=== PATIENT | female | born 1965 | race American Indian/Alaskan Native ===

== ENCOUNTER 2019-01-24 10:57 | Inpatient (IN) | payer OTHER ==
--- NOTE | 2019-01-24 11:01 | Emergency Department Report ---
ED Neuro Deficit HPI - General Chief Complaint: Neuro Symptoms/Deficit Stated Complaint: NEURO ISSUES Time Seen by Provider: 01/24/19 10:58 Source: patient, EMS (EMS notes not available at time of chart dictation), RN notes reviewed, old records reviewed Mode of arrival: Stretcher Limitations: Physical Limitation - History of Present Illness Initial Comments: This is a 54-year-old female. This patient is not known to this provider previously. She does not know the name of her primary care doctor. As per review of old medical records, has a history of diabetes, hypertension, high cholesterol, asthma, transient ischemic attack. Patient brought to the hospital by EMS for complaints of possible stroke. Patient and EMS believe her last normal time is 7:30 in the morning. Symptoms include frontal headache, throbbing in nature, not sudden or thunderclap in nature, and subjective right- sided arm weakness and discoordination. Symptoms constant, do not radiate anywhere, and did not have exacerbating or relieving factors. Patient denies recent surgery. She denies other pain. She states she is not taking systemic anticoagulation as she is aware of. She is not sure if she is taking aspirin. -: hour(s) Location: right arm, right leg, other Presenting Symptoms: Present: Weak/Paralyzed One Side History of same: Yes Place: home Severity: mild Quality: weak Improves With: none Worsens With: none Context: other (patient not sure, believes onset at 7:30) - Related Data Home Medications: Home Medications Medication Instructions Recorded Confirmed Last Taken Lisinopril 40 mg PO DAILY 01/07/15 05/09/16 01/06/15 Metoprolol 01/07/15 01/07/15 01/06/15 NovoLOG Flexpen 01/07/15 01/07/15 01/06/15 Proventil 0.5% NEBS 01/07/15 01/07/15 01/06/15 Insulin Detemir [Levemir Flextouch] 25 unit SQ BID 05/09/16 05/09/16 Unknown Rosuvastatin (Nf) [Crestor] 10 mg PO QHS 05/09/16 05/09/16 Unknown Travoprost (Benzalkonium) 2.5 ml OP DAILY 05/09/16 05/09/16 Unknown [Travoprost 0.004% Eye Drop] hydroCHLOROthiazide [HCTZ] 25 mg PO QDAY 05/09/16 05/09/16 Unknown Previous Rx's Medication Instructions Recorded Last Taken Type Aspirin 325 mg PO QDAY #30 tablet 01/07/15 Unknown Rx Naproxen [Naprosyn] 500 mg PO BID #20 tablet 05/09/16 Unknown Rx Allergies/Adverse Reactions: Allergies Allergy/AdvReac Type Severity Reaction Status Date / Time codeine Allergy Hives Verified 01/24/19 11:00 ibuprofen [From Motrin] Allergy Rash Verified 01/24/19 11:00 metformin Allergy Hives Verified 01/24/19 11:00 ED Review of Systems ROS: Stated complaint: NEURO ISSUES Other details as noted in HPI Constitutional: denies: fever Eyes: denies: eye discharge ENT: denies: epistaxis Respiratory: denies: cough Cardiovascular: denies: syncope Gastrointestinal: denies: abdominal pain Genitourinary: denies: dysuria Musculoskeletal: denies: back pain Skin: denies: lesions Neurological: headache, weakness Psychiatric: anxiety ED Past Medical Hx - Past Medical History Hx Hypertension: Yes Hx CVA: Yes (TIA) Hx Diabetes: Yes Hx Asthma: Yes Additional medical history: DDD - Surgical History Additional Surgical History: LEFT ANKLE. BIOPSY. PARTIAL HYSTERECTOMY - Social History Smoking Status: Never Smoker Substance Use Type: Prescribed - Medications Home Medications: Home Medications Medication Instructions Recorded Confirmed Last Taken Type Aspirin 325 mg PO QDAY #30 tablet 01/07/15 05/09/16 Unknown Rx Lisinopril 40 mg PO DAILY 01/07/15 05/09/16 01/06/15 History Metoprolol 01/07/15 01/07/15 01/06/15 History NovoLOG Flexpen 01/07/15 01/07/15 01/06/15 History Proventil 0.5% NEBS 01/07/15 01/07/15 01/06/15 History Insulin Detemir [Levemir Flextouch] 25 unit SQ BID 05/09/16 05/09/16 Unknown History Naproxen [Naprosyn] 500 mg PO BID #20 tablet 05/09/16 Unknown Rx Rosuvastatin (Nf) [Crestor] 10 mg PO QHS 05/09/16 05/09/16 Unknown History Travoprost (Benzalkonium) 2.5 ml OP DAILY 05/09/16 05/09/16 Unknown History [Travoprost 0.004% Eye Drop] hydroCHLOROthiazide [HCTZ] 25 mg PO QDAY 05/09/16 05/09/16 Unknown History ED Neuro Physical Exam - General Limitations: No Limitations General appearance: alert, anxious, obese Suspected Stroke: Yes - Head Head exam: Present: atraumatic, normocephalic - Eye Eye exam: Present: normal appearance, PERRL, EOMI. Absent: nystagmus - ENT ENT exam: Present: normal exam, normal orophraynx, mucous membranes moist, nor mal external ear exam - Neck Neck exam: Present: normal inspection, full ROM. Absent: tenderness, meningismus - Respiratory Respiratory exam: Present: normal lung sounds bilaterally. Absent: respiratory distress - Cardiovascular Cardiovascular Exam: Present: regular rate, normal rhythm, normal heart sounds. Absent: bradycardia, tachycardia, irregular rhythm, systolic murmur, diastolic murmur, rubs, gallop - GI/Abdominal GI/Abdominal exam: Present: soft. Absent: distended, tenderness, guarding, rebound, rigid, pulsatile mass - Extremities Exam Extremities exam: Present: normal inspection, other (2+ pulses noted in the bilateral upper, lower extremities. There is no long bony tenderness. The pelvis is stable. Muscular compartments are soft. There is no redness, pus, streaking or crepitus noted.). Absent: pedal edema, joint swelling, calf tenderness - Back Exam Back exam: Present: normal inspection, full ROM. Absent: tenderness, CVA tenderness (R), CVA tenderness (L), paraspinal tenderness, vertebral tenderness - Neurological Exam Neurological exam: Present: alert, other (there is no facial droop. The tongue is midline. The extraocular movements are intact bilaterally. Speaking in complete sentences. There is 4/5 strength right arm, right leg. 5/5 strength left arm, left leg. Endorses decreased sensation to light touch right arm, right leg) - NIHSS Assessment Interval: Baseline 1a. Level of Consciousness: alert/keenly responsive 1b. LOC Questions: answers both correctly 1c. LOC Commands: performs tasks correctly 2. Best Gaze: normal 3. Visual: no visual loss 4. Facial Palsy: normal symmetrical movement 5b. Motor Arm Right: drift 5a. Motor Arm Left: no drift 6a. Motor Leg Left: no drift 6b. Motor Leg Right: drift 7. Limb Ataxia: absent 8. Sensory: mild/moderate sensory loss 9. Best Language: no aphasia 10. Dysarthria: normal 11. Extinction/Inattention: no abnormality Total Score: 3 Stroke Severity: Minor Stroke - Psychiatric Psychiatric exam: Present: anxious - Skin Skin exam: Present: warm, dry, intact, normal color. Absent: rash ED Course Vital Signs 01/24/19 01/24/19 01/24/19 11:24 11:37 12:12 Temperature 97.6 F Pulse Rate 82 82 80 Respiratory 18 18 Rate Blood Pressure 188/112 188/112 Blood Pressure 188/112 211/130 [Right] O2 Sat by Pulse 98 Oximetry - Reevaluation(s) Reevaluation #1: 01/24/19 12:27 Differential diagnosis, including but not limited to: Stroke, TIA, conversion disorder, pneumonia, urinary tract infection Complex migraine This is a 54-year-old female presenting as a possible code stroke. She is found to be eligible for TPA as per consultation with our stroke neurologist, Dr. Sun. The risks, benefits and alternatives of TPA were discussed extensively by the aforementioned neurology specialist with the patient. Patient specifically counseled about the risk of disability, paralysis, and long-term loss of quality of life. Patient has provided informed refusal for TPA, at of concern for hemorrhage. However, the patient is amenable to hospitalization for further diagnostic workup and supportive care. Progressive hypertension recommended by neurology, however, currently, blood pressure 211/183, therefore, hydralazine is ordered. As per stroke neurology, exam not suggestive of large vessel occlusion, and emergent CT angiogram of the head and neck are not recommended. Hospital physician recruiting consultant was paged to arrange admission. 01/24/19 12:29 The patient states she is not allergic to aspirin Reevaluation #2: 01/24/19 12:31 The case is presented to the Hospital physician, Dr. Murphy, who has accepted the patient to the medical service. - Lab Data Result diagrams: 01/24/19 11:19 01/24/19 11:19 Lab Results 01/24/19 01/24/19 01/24/19 Range/Units 11:19 11:19 11:19 WBC 3.8 L (4.5-11.0) K/mm3 RBC 5.19 H (3.65-5.03) M/mm3 Hgb 13.8 (10.1-14.3) gm/dl Hct 41.2 (30.3-42.9) % MCV 79 (79-97) fl MCH 27 L (28-32) pg MCHC 34 (30-34) % RDW 13.4 (13.2-15.2) % Plt Count 160 (140-440) K/mm3 Lymph % (Auto) 32.6 (13.4-35.0) % [place] % (Auto) 8.4 H (0.0-7.3) % Eos % (Auto) 1.8 (0.0-4.3) % Baso % (Auto) 0.5 (0.0-1.8) % Lymph # 1.2 (1.2-5.4) K/mm3 [place] # 0.3 (0.0-0.8) K/mm3 Eos # 0.1 (0.0-0.4) K/mm3 Baso # 0.0 (0.0-0.1) K/mm3 Seg Neutrophils % 56.7 (40.0-70.0) % Seg Neutrophils # 2.1 (1.8-7.7) K/mm3 PT 12.1 L (12.2-14.9) Sec. INR 0.92 (0.87-1.13) APTT 22.4 L (24.2-36.6) Sec. Thrombin Time 16.6 (15.1-19.6) Sec. Sodium 139 (137-145) mmol/L Potassium 3.8 (3.6-5.0) mmol/L Chloride 100.5 (98-107) mmol/L Carbon Dioxide 26 (22-30) mmol/L Anion Gap 16 mmol/L BUN 6 L (7-17) mg/dL Creatinine 0.5 L (0.7-1.2) mg/dL Estimated GFR > 60 ml/min BUN/Creatinine Ratio 12 % Glucose 289 H (65-100) mg/dL Calcium 9.0 (8.4-10.2) mg/dL Magnesium 1.80 (1.7-2.3) mg/dL Total Bilirubin 0.40 (0.1-1.2) mg/dL AST 17 (5-40) units/L ALT 20 (7-56) units/L Alkaline Phosphatase 89 (35-129) units/L Total Creatine Kinase 70 (30-135) units/L CK-MB (CK-2) 1.4 (0.0-4.0) ng/mL CK-MB (CK-2) Rel Index 2.0 (0-4) Troponin T < 0.010 (0.00-0.029) ng/mL Total Protein 7.0 (6.3-8.2) g/dL Albumin 4.4 (3.9-5) g/dL Albumin/Globulin Ratio 1.7 % TSH (0.270-4.200) mlU/mL Salicylates (2.8-20.0) mg/dL Acetaminophen (10.0-30.0) ug/mL Plasma/Serum Alcohol (0-0.07) % 01/24/19 01/24/19 01/24/19 Range/Units 11:19 11:19 11:19 WBC (4.5-11.0) K/mm3 RBC (3.65-5.03) M/mm3 Hgb (10.1-14.3) gm/dl Hct (30.3-42.9) % MCV (79-97) fl MCH (28-32) pg MCHC (30-34) % RDW (13.2-15.2) % Plt Count (140-440) K/mm3 Lymph % (Auto) (13.4-35.0) % [place] % (Auto) (0.0-7.3) % Eos % (Auto) (0.0-4.3) % Baso % (Auto) (0.0-1.8) % Lymph # (1.2-5.4) K/mm3 [place] # (0.0-0.8) K/mm3 Eos # (0.0-0.4) K/mm3 Baso # (0.0-0.1) K/mm3 Seg Neutrophils % (40.0-70.0) % Seg Neutrophils # (1.8-7.7) K/mm3 PT (12.2-14.9) Sec. INR (0.87-1.13) APTT (24.2-36.6) Sec. Thrombin Time (15.1-19.6) Sec. Sodium (137-145) mmol/L Potassium (3.6-5.0) mmol/L Chloride (98-107) mmol/L Carbon Dioxide (22-30) mmol/L Anion Gap mmol/L BUN (7-17) mg/dL Creatinine (0.7-1.2) mg/dL Estimated GFR ml/min BUN/Creatinine Ratio % Glucose (65-100) mg/dL Calcium (8.4-10.2) mg/dL Magnesium (1.7-2.3) mg/dL Total Bilirubin (0.1-1.2) mg/dL AST (5-40) units/L ALT (7-56) units/L Alkaline Phosphatase (35-129) units/L Total Creatine Kinase (30-135) units/L CK-MB (CK-2) (0.0-4.0) ng/mL CK-MB (CK-2) Rel Index (0-4) Troponin T (0.00-0.029) ng/mL Total Protein (6.3-8.2) g/dL Albumin (3.9-5) g/dL Albumin/Globulin Ratio % TSH 1.160 (0.270-4.200) mlU/mL Salicylates < 0.3 L (2.8-20.0) mg/dL Acetaminophen < 5.0 L (10.0-30.0) ug/mL Plasma/Serum Alcohol (0-0.07) % 01/24/19 Range/Units 11:19 WBC (4.5-11.0) K/mm3 RBC (3.65-5.03) M/mm3 Hgb (10.1-14.3) gm/dl Hct (30.3-42.9) % MCV (79-97) fl MCH (28-32) pg MCHC (30-34) % RDW (13.2-15.2) % Plt Count (140-440) K/mm3 Lymph % (Auto) (13.4-35.0) % [place] % (Auto) (0.0-7.3) % Eos % (Auto) (0.0-4.3) % Baso % (Auto) (0.0-1.8) % Lymph # (1.2-5.4) K/mm3 [place] # (0.0-0.8) K/mm3 Eos # (0.0-0.4) K/mm3 Baso # (0.0-0.1) K/mm3 Seg Neutrophils % (40.0-70.0) % Seg Neutrophils # (1.8-7.7) K/mm3 PT (12.2-14.9) Sec. INR (0.87-1.13) APTT (24.2-36.6) Sec. Thrombin Time (15.1-19.6) Sec. Sodium (137-145) mmol/L Potassium (3.6-5.0) mmol/L Chloride (98-107) mmol/L Carbon Dioxide (22-30) mmol/L Anion Gap mmol/L BUN (7-17) mg/dL Creatinine (0.7-1.2) mg/dL Estimated GFR ml/min BUN/Creatinine Ratio % Glucose (65-100) mg/dL Calcium (8.4-10.2) mg/dL Magnesium (1.7-2.3) mg/dL Total Bilirubin (0.1-1.2) mg/dL AST (5-40) units/L ALT (7-56) units/L Alkaline Phosphatase (35-129) units/L Total Creatine Kinase (30-135) units/L CK-MB (CK-2) (0.0-4.0) ng/mL CK-MB (CK-2) Rel Index (0-4) Troponin T (0.00-0.029) ng/mL Total Protein (6.3-8.2) g/dL Albumin (3.9-5) g/dL Albumin/Globulin Ratio % TSH (0.270-4.200) mlU/mL Salicylates (2.8-20.0) mg/dL Acetaminophen (10.0-30.0) ug/mL Plasma/Serum Alcohol < 0.01 (0-0.07) % - EKG Data -: EKG Interpreted by Id EKG shows normal: sinus rhythm Rate: normal 01/24/19 12:31 This is a sinus rhythm, 80 bpm, limited by motion artifact, left axis deviation, poor R-wave progression, nonspecific T-wave abnormalities, the EKG is abnormal, the EKG is not consistent with ST elevation myocardial infarction. - Radiology Data Radiology results: pending [facility] [address] [place] [address] Cat Scan Report Signed Patient: OH PEREZ MR#: [id number] [birth year] : 1965 Acct:[id number] Age/Sex: 54 / F ADM Date: 01/24/19 Loc: ED Attending Dr: Ordering Physician: HUNG MORAN MD Date of Service: 01/24/19 Procedure(s): CT head/brain wo con Accession Number(s): [id number] cc: HUNG MORAN MD CT head/brain wo con INDICATION: Stroke symptoms. TECHNIQUE: Routine CT head without contrast. All CT scans at this location are performed using CT dose reduction for ALARA by means of automated exposure control. COMPARISON: Head CT on 01/06/2015. FINDINGS: BRAIN / INTRACRANIAL CONTENTS: No acute hemorrhage, mass effect, midline shift, or hydrocephalus. No appreciable acute large territorial or lacunar infarct. There is a chronic lacunar infarct in the right body of the caudate nucleus. Ventricular and cisternal size otherwise appears normal for age. ORBITS: No significant abnormality of visualized orbits. SINUSES / MASTOIDS: No significant abnormality of visualized sinuses and mastoid air cells. ADDITIONAL FINDINGS: None. IMPRESSION: 1. No appreciable acute infarct or other acute intracranial abnormality. 2. Small chronic lacunar infarct in the right caudate nucleus. CRITICAL RESULT: Time of Discovery: 10:22 AM central time Time of Communication: 10:23 AM central time Licensed Practitioner Receiving Report: Dr. Moran Read Back Performed: Yes. Signer Name: Sree Godinez MD Signed: 01/24/2019 11:24 AM Workstation Name: [id number] Transcribed By: KATHERINE Dictated By: Sree Godinez MD Electronically Authenticated By: Sree Godinez MD Signed Date/Time: 01/24/19 1124 - Core Measures Measure Exclusions: not indicated - Thrombolytic Inclusion/Exclusion Thrombolytic Inclusion Criteria: Ischemic Stroke Onset< 3h (patient provided informed refusal for TPA), NIH Stroke Scale Deficit, Negative CT Scan for ICH, Age 18 or Older, Glucose of 50-400mg/dl Critical Care Time: Yes Critical care time in (mins) excluding proc time.: 35 Critical care attestation.: If time is entered above; I have spent that time in minutes in the direct care of this critically ill patient, excluding procedure time. ED Disposition Clinical Impression: CVA (cerebral infarction), Headache Disposition: DC-[id number] OP ADMIT IP TO THIS HOSP Is pt being admited?: Yes Does the pt Need Aspirin: Yes Condition: Stable
[2019-01-24] MEDS ORDERED: NORMODYNE IV ONE (11:14)
--- NOTE | 2019-01-24 11:25 | Emergency Department Report ---
ED Neuro Deficit HPI - General Chief Complaint: Neuro Symptoms/Deficit Stated Complaint: NEURO ISSUES Time Seen by Provider: 01/24/19 10:58 Source: patient, EMS Mode of arrival: Stretcher Limitations: No Limitations - History of Present Illness Initial Comments: [facility] Date of Service: 01/24/2019 10:59:43 Impression: Left Hemispheric Comments: No cortical signs on exam. With right arm and leg weakness as well as numbness most likely a thalamocapsular infarct. Mechanism of Stroke: Small Vessel Disease Metrics: Last Known Well: 01/24/2019 09:00:00 [employer] Notification Time: 01/24/2019 10:58:35 Arrival Time: 01/24/2019 10:57:00 Stamp Time: 01/24/2019 10:59:43 Time First Login Attempt: 01/24/2019 11:04:46 Video Start Time: 01/24/2019 11:04:46 Symptoms: Right arm weakness and numbness NIHSS Start Assessment Time: 01/24/2019 11:06:00 Patient is not a candidate for tPA. Patient was not deemed candidate for tPA thrombolytics because of Patient declined treatment with tpa once risks and benefits were discussed. Video End Time: 01/24/2019 11:21:49 CT head showed no acute hemorrhage or acute core infarct. CT head was reviewed. Advanced imaging was not obtained as the presentation was not suggestive of Large Vessel Occlusive Disease. ER physician notified of the decision on thrombolytics management. Our recommendations are outlined below. Recommendations: Initiate Aspirin 81 MG Daily Recommended Scan: MRI Head Without Contrast MRA Head and Neck Without Contrast When Available - Stroke Protocol Echocardiogram - Transthoracic Echocardiogram Lipid Panel to Be Obtained, if Not Done in the Last Three Months Therapies: Physical Therapy, Occupational Therapy, Speech Therapy Assessment When Applicable Dysphaghia Screen: Swallow Evaluation, Bedside DVT prophylaxis: SCDs, Pneumatic Compression Disposition: Follow up with Teleneurology Follow up Sign Out: Discussed with Emergency Department Provider History of Present Illness: Patient is a 54 years old Female. Patient was brought by EMS for symptoms of Right arm weakness and numbness 54 yo F with history of htn, dm who is presenting with right arm weakness and numbness. Patient states that she woke up this morning and she didn't feel right. Her right arm and hand felt numb and her arm was heavy. She woke up at 7:00 and she was fine. She then noticed the weakness at 9:00. CT head showed no acute hemorrhage or acute core infarct. CT head was reviewed. Examination: 1A: Level of Consciousness - Alert; keenly responsive + 0 1B: Ask Month and Age - Both Questions Right + 0 1C: Blink Eyes & Squeeze Hands - Performs Both Tasks + 0 2: Test Horizontal Extraocular Movements - Normal + 0 3: Test Visual Tapia - No Visual Loss + 0 4: Test Facial Palsy (Use Grimace if Obtunded) - Normal symmetry + 0 5A: Test Left Arm Motor Drift - No Drift for 10 Seconds + 0 5B: Test Right Arm Motor Drift - Drift, but doesn't hit bed + 1 6A: Test Left Leg Motor Drift - No Drift for 5 Seconds + 0 6B: Test Right Leg Motor Drift - Drift, but doesn't hit bed + 1 7: Test Limb Ataxia (FNF/Heel-[place]) - No Ataxia + 0 8: Test Sensation - Mild-Moderate Loss: Less Sharp/More Dull + 1 9: Test Language/Aphasia - Normal; No aphasia + 0 10: Test Dysarthria - Normal + 0 11: Test Extinction/Inattention - No abnormality + 0 NIHSS Score: 3 Patient was informed the Neurology Consult would happen via TeleHealth consult by way of interactive audio and video telecommunications and consented to receiving care in this manner. Due to the immediate potential for life-threatening deterioration due to underlying acute neurologic illness, I spent 35 minutes providing critical care. This time includes time for face to face visit via telemedicine, review of medical records, imaging studies and discussion of findings with providers, the patient and/or family. Dr Vickie Sun [employer] - Related Data Home Medications: Home Medications Medication Instructions Recorded Confirmed Last Taken Lisinopril 40 mg PO DAILY 01/07/15 05/09/16 01/06/15 Metoprolol 01/07/15 01/07/15 01/06/15 NovoLOG Flexpen 01/07/15 01/07/15 01/06/15 Proventil 0.5% NEBS 01/07/15 01/07/15 01/06/15 Insulin Detemir [Levemir Flextouch] 25 unit SQ BID 05/09/16 05/09/16 Unknown Rosuvastatin (Nf) [Crestor] 10 mg PO QHS 05/09/16 05/09/16 Unknown Travoprost (Benzalkonium) 2.5 ml OP DAILY 05/09/16 05/09/16 Unknown [Travoprost 0.004% Eye Drop] hydroCHLOROthiazide [HCTZ] 25 mg PO QDAY 05/09/16 05/09/16 Unknown Previous Rx's Medication Instructions Recorded Last Taken Type Aspirin 325 mg PO QDAY #30 tablet 01/07/15 Unknown Rx Naproxen [Naprosyn] 500 mg PO BID #20 tablet 05/09/16 Unknown Rx Allergies/Adverse Reactions: Allergies Allergy/AdvReac Type Severity Reaction Status Date / Time codeine Allergy Hives Verified 01/24/19 11:00 ibuprofen [From Motrin] Allergy Rash Verified 01/24/19 11:00 metformin Allergy Hives Verified 01/24/19 11:00 ED Review of Systems ROS: Stated complaint: NEURO ISSUES Other details as noted in HPI ED Past Medical Hx - Past Medical History Hx Hypertension: Yes Hx CVA: Yes (TIA) Hx Diabetes: Yes Hx Asthma: Yes Additional medical history: DDD - Surgical History Additional Surgical History: LEFT ANKLE. BIOPSY. PARTIAL HYSTERECTOMY - Social History Smoking Status: Never Smoker Substance Use Type: Prescribed - Medications Home Medications: Home Medications Medication Instructions Recorded Confirmed Last Taken Type Aspirin 325 mg PO QDAY #30 tablet 01/07/15 05/09/16 Unknown Rx Lisinopril 40 mg PO DAILY 01/07/15 05/09/16 01/06/15 History Metoprolol 01/07/15 01/07/15 01/06/15 History NovoLOG Flexpen 01/07/15 01/07/15 01/06/15 History Proventil 0.5% NEBS 01/07/15 01/07/15 01/06/15 History Insulin Detemir [Levemir Flextouch] 25 unit SQ BID 05/09/16 05/09/16 Unknown History Naproxen [Naprosyn] 500 mg PO BID #20 tablet 05/09/16 Unknown Rx Rosuvastatin (Nf) [Crestor] 10 mg PO QHS 05/09/16 05/09/16 Unknown History Travoprost (Benzalkonium) 2.5 ml OP DAILY 05/09/16 05/09/16 Unknown History [Travoprost 0.004% Eye Drop] hydroCHLOROthiazide [HCTZ] 25 mg PO QDAY 05/09/16 05/09/16 Unknown History ED Neuro Physical Exam - General Limitations: No Limitations Suspected Stroke: Yes - NIHSS Assessment Interval: Baseline 1a. Level of Consciousness: alert/keenly responsive 1b. LOC Questions: answers both correctly 1c. LOC Commands: performs tasks correctly 2. Best Gaze: normal 3. Visual: no visual loss 4. Facial Palsy: normal symmetrical movement 5b. Motor Arm Right: drift 5a. Motor Arm Left: no drift 6a. Motor Leg Left: drift 6b. Motor Leg Right: no drift 7. Limb Ataxia: absent 8. Sensory: mild/moderate sensory loss 9. Best Language: no aphasia 10. Dysarthria: normal 11. Extinction/Inattention: no abnormality Total Score: 3 Stroke Severity: Minor Stroke Critical care attestation.: If time is entered above; I have spent that time in minutes in the direct care of this critically ill patient, excluding procedure time. ED Disposition Clinical Impression: CVA (cerebral infarction) Disposition: 09 OP ADMIT IP TO THIS HOSP Is pt being admited?: Yes Condition: Stable
--- NOTE | 2019-01-24 11:28 | Cat Scan Report ---
CT head/brain wo con INDICATION: Stroke symptoms. TECHNIQUE: Routine CT head without contrast. All CT scans at this location are performed using CT dos e reduction for ALARA by means of automated exposure control. COMPARISON: Head CT on 01/06/2015. FINDINGS: BRAIN / INTRACRANIAL CONTENTS: No acute hemorrhage, mass effect, midline shift, or hydrocephalus. No appreciable acute large territorial or lacunar infarct. There is a chronic lacunar infarct in the rig ht body of the caudate nucleus. Ventricular and cisternal size otherwise appears normal for age. ORBITS: No significant abnormality of visualized orbits. SINUSES / MASTOIDS: No significant abnormality of visualized sinuses and mastoid air cells. ADDITIONAL FINDINGS: None. IMPRESSION: 1. No appreciable acute infarct or other acute intracranial abnormality. 2. Small chronic lacunar infarct in the right caudate nucleus. CRITICAL RESULT: Time of Discovery: 10:22 AM central time Time of Communication: 10:23 AM central time Licensed Practitioner Receiving Report: Dr. Moran Read Back Performed: Yes. Signer Name: Sree Godinez MD Signed: 01/24/2019 11:24 AM Workstation Name: [id number]
[2019-01-24 11:35] LABS: Basophils % (Auto) 0.5 % (0.0-1.8); Eosinophils # (Auto) 0.1 K/mm3 (0.0-0.4); Eosinophils % (Auto) 1.8 % (0.0-4.3); Hematocrit 41.2 % (30.3-42.9); Hemoglobin 13.8 gm/dl (10.1-14.3); Lymphocytes # (Auto) 1.2 K/mm3 (1.2-5.4); Lymphocytes % (Auto) 32.6 % (13.4-35.0); Mean Corpuscular HGB Conc 34 % (30-34); Mean Corpuscular Volume 79 fl (79-97); Monocytes # (Auto) 0.3 K/mm3 (0.0-0.8); Monocytes % (Auto) 8.4 % (0.0-7.3); Platelet Count 160 K/mm3 (140-440); Red Blood Count 5.19 M/mm3 (3.65-5.03); Red Cell Distribution Width 13.4 % (13.2-15.2)
[2019-01-24] MEDS ORDERED: BENADRYL IV ONE (11:37)
[2019-01-24] MEDS ORDERED: REGLAN IV ONE (11:37)
[2019-01-24] MEDS ORDERED: NACL 0.9% 250ML 250 ML IV ONE (11:37)
[2019-01-24] MEDS ORDERED: BABY ASPIRIN PO ONE (11:38)
[2019-01-24 11:45] LABS: INR 0.92 (0.87-1.13)
[2019-01-24 11:46] LABS: Partial Thromboplastin Time 22.4 Sec. (24.2-36.6); Thrombin Time 16.6 Sec. (15.1-19.6)
[2019-01-24 12:01] LABS: Creatine Kinase MB 1.4 ng/mL (0.0-4.0)
[2019-01-24 12:03] LABS: Alanine Aminotransferase 20 units/L (7-56); Albumin 4.4 g/dL (3.9-5); BUN/Creatinine Ratio 12; Blood Urea Nitrogen 6 mg/dL (7-17); Hemolysis Index 3
[2019-01-24] MEDS ORDERED: APRESOLINE IV ONE (12:24)
[2019-01-24] MEDS ORDERED: MILK OF MAGNESIA PO PRN (12:35)
[2019-01-24] MEDS ORDERED: PHENERGAN PR PRN (12:35)
[2019-01-24] MEDS ORDERED: ZOFRAN IV PRN (12:35)
[2019-01-24] MEDS ORDERED: DULCOLAX PR PRN (12:35)
[2019-01-24] MEDS ORDERED: TYLENOL PO PRN (12:35)
[2019-01-24] MEDS ORDERED: SODIUM CHLORIDE FLUSH SYRINGE 10 ML IV PRN (12:35)
[2019-01-24] MEDS ORDERED: REGLAN PO PRN (12:35)
--- NOTE | 2019-01-24 12:41 | History and Physical Report ---
History of Present Illness Chief complaint: Im weak on my right side History of present illness: 54 YO Female with HTN, CVA, DM, HLD, Asthma presents to ED for evaluation. Pt states that she was in her usual state of health at bedtime which was around 2300hrs. Pt states that around 0900hrs this morning, she experienced sudden onset weakness on her right side, and inability to walk correctly. Pt states that she felt as though she "lost my coordination", and was also unable to hold objects in her right hand. Pt also acknowledges concomitant frontal headache. EMS notified, and upon arrival the patient was found to have a neurologic deficit. A code stroke was called, and the patient transported to [facility]. Pt seen and evaluated in ED and found to have symptoms consistent with CVA. Teleneurology consulted. Pt deemed a candidate for TPA, but patient refused therapy. Pt counseled regarding risks and benefits of therapy. Pt acknowledges understanding risks and benefits but declines therapy. Pt admitted to telemetry and initiated on CVA protocol. Neurology team consulted in ED. Pt denies fever, chills, CP, Palpitations, NVD, Trauma, BRBPR, Skin rash, or recent ill contacts. Prior admission 01/06/15 reviewed. All listed medication reconciled at time of admission. Past History Past Medical History: diabetes, hypertension, hyperlipidemia, stroke Past Surgical History: hysterectomy, Other (ankle surgery) Social history: single, lives with family Family history: diabetes, hypertension Medications and Allergies Allergies Allergy/AdvReac Type Severity Reaction Status Date / Time codeine Allergy Hives Verified 01/24/19 11:00 ibuprofen [From Motrin] Allergy Rash Verified 01/24/19 11:00 metformin Allergy Hives Verified 01/24/19 11:00 Home Medications Medication Instructions Recorded Confirmed Last Taken Type Aspirin 325 mg PO QDAY #30 tablet 01/07/15 01/24/19 01/23/19 Rx Insulin Detemir [Levemir Flextouch] 25 unit SQ BID 05/09/16 01/24/19 01/23/19 History Lisinopril/Hydrochlorothiazide 20 - 25 mg PO HS 01/24/19 01/24/19 01/23/19 History [Zestoretic 20-25 mg] Metoprolol Xl [Metoprolol 100 mg PO DAILY 01/24/19 01/24/19 01/23/19 History SUCCINATE ER TAB] Simvastatin 20 mg PO DAILY 01/24/19 01/24/19 01/23/19 History glipiZIDE 10 mg PO DAILY 01/24/19 01/24/19 01/23/19 History Active Meds: Active Medications Acetaminophen (Tylenol) 650 mg PO Q4H PRN PRN Reason: Pain, Mild (1-3) Aspirin (Aspirin) 325 mg PO QDAY BRIANNA Bisacodyl (Dulcolax) 10 mg UT QDAY PRN PRN Reason: Constipation Magnesium Hydroxide (Milk Of Magnesia) 30 ml PO Q4H PRN PRN Reason: Constipation Metoclopramide HCl (Reglan) 10 mg PO Q6H PRN PRN Reason: Nausea And Vomiting Ondansetron HCl (Zofran) 4 mg IV Q8H PRN PRN Reason: Nausea And Vomiting Promethazine HCl (Phenergan) 25 mg UT Q6H PRN PRN Reason: Nausea And Vomiting Sodium Chloride (Sodium Chloride Flush Syringe 10 Ml) 10 ml INJ PRN PRN PRN Reason: LINE FLUSH Review of Systems Constitutional: no weight loss, no weight gain, no fever, no chills Ears, nose, mouth and throat: no ear pain, no ear discharge, no tinnitis, no decreased hearing, no nose pain, no nasal congestion Breasts: no change in shape, no swelling, no mass Cardiovascular: no chest pain, no orthopnea, no rapid/irregular heart beat, no edema, no syncope, no lightheadedness Respiratory: no cough, no cough with sputum, no excessive sputum, no hemoptysis, no shortness of breath Gastrointestinal: no abdominal pain, no nausea, no vomiting, no diarrhea, no constipation Genitourinary Female: no pelvic pain, no flank pain, no menorrhagia, no dysuria, no urinary frequency, no urgency Menstruation: no premenarcheal, no post hysterectomy, no ammenorrhea, no period normal, no period heavy, no period spotting Rectal: no pain, no incontinence, no bleeding Musculoskeletal: no neck stiffness, no neck pain, no shooting arm pain, no arm numbness/tingling, no leg numbness/tingling Integumentary: no rash, no pruritis, no redness, no sores, no wounds Neurological: weakness, numbness, lack of coordination, headaches, change in speech, confusion, balance difficulties, no transient paralysis, no paralysis, no parathesias, no tingling, no seizures Psychiatric: no anxiety, no memory loss, no change in sleep habits, no sleep disturbances, no insomnia, no hypersomnia, no change in appetite Endocrine: no cold intolerance, no heat intolerance, no polyphagia, no excessive thirst, no polydipsia, no polyuria Hematologic/Lymphatic: no easy bruising, no easy bleeding, no lymphadenopathy, no lymphedema Allergic/Immunologic: no urticaria, no allergic rhinitis, no persistent infections, no anaphylaxis Exam - Constitutional Vitals: Temp Pulse Resp BP Pulse Ox 97.6 F 81 18 181/113 98 01/24/19 11:24 01/24/19 12:31 01/24/19 12:12 01/24/19 12:31 01/24/19 12:12 General appearance: Present: mild distress - EENT Eyes: Present: PERRL ENT: hearing intact, clear oral mucosa - Neck Neck: Present: supple, normal ROM - Respiratory Respiratory effort: normal Respiratory: bilateral: CTA - Cardiovascular Heart Sounds: Present: S1 & S2. Absent: rub, click - Extremities Extremities: pulses symmetrical, No edema Peripheral Pulses: within normal limits - Abdominal General gastrointestinal: Present: soft, non-tender, non-distended, normal bowel sounds Female genitourinary: Present: normal - Integumentary Integumentary: Present: clear, warm, dry - Musculoskeletal Musculoskeletal: right sided weakness - Psychiatric Psychiatric: appropriate mood/affect, intact judgment & insight - Neurologic Neurologic: CNII-XII intact, moves all extremities, no gait normal Results - Labs CBC & Chem 7: 01/24/19 11:19 01/24/19 11:19 Labs: Abnormal lab results 01/24/19 01/24/19 01/24/19 Range/Units 11:19 11:19 11:19 WBC 3.8 L (4.5-11.0) K/mm3 RBC 5.19 H (3.65-5.03) M/mm3 MCH 27 L (28-32) pg [place] % (Auto) 8.4 H (0.0-7.3) % PT 12.1 L (12.2-14.9) Sec. APTT 22.4 L (24.2-36.6) Sec. BUN 6 L (7-17) mg/dL Creatinine 0.5 L (0.7-1.2) mg/dL Glucose 289 H (65-100) mg/dL Salicylates (2.8-20.0) mg/dL Acetaminophen (10.0-30.0) ug/mL 01/24/19 01/24/19 Range/Units 11:19 11:19 WBC (4.5-11.0) K/mm3 RBC (3.65-5.03) M/mm3 MCH (28-32) pg [place] % (Auto) (0.0-7.3) % PT (12.2-14.9) Sec. APTT (24.2-36.6) Sec. BUN (7-17) mg/dL Creatinine (0.7-1.2) mg/dL Glucose (65-100) mg/dL Salicylates < 0.3 L (2.8-20.0) mg/dL Acetaminophen < 5.0 L (10.0-30.0) ug/mL Assessment and Plan - Patient Problems (1) CVA (cerebral infarction) Current Visit: No Status: Acute Plan to address problem: Stroke Protocol: Admit to telemetry, CT head, PT/OT/Speech Therapy, Antiplatelet therapy, lipid panel, statin therapy, Neurology consulted in ED, Carotid doppler, Echo. (2) Diabetes Current Visit: No Status: Acute Qualifiers: Diabetes mellitus type: type 2 Plan to address problem: ADA diet, insulin, accu check, hypoglycemia protocol (3) Hypertension Current Visit: No Status: Acute Qualifiers: Hypertension type: essential hypertension Qualified Code(s): I10 - Essential (primary) hypertension Plan to address problem: Monitor bp q shift, permissive hypertension overnight. (4) HLD (hyperlipidemia) Current Visit: No Status: Chronic Qualifiers: Hyperlipidemia type: mixed hyperlipidemia Qualified Code(s): E78.2 - Mixed hyperlipidemia Plan to address problem: statin therapy, lipid panel (5) DVT prophylaxis Current Visit: Yes Status: Acute Plan to address problem: SCD to BLE while in bed, prophylactic heparin.
--- NOTE | 2019-01-24 14:36 | Vascular Lab Report ---
VL carotid duplex BILAT INDICATION / CLINICAL INFORMATION: stroke. Doppler ultrasound and spectral analysis was performed on both carotid arteries COMPARISON: None available. FINDINGS: Minimal plaque is seen bilaterally. Peak systolic velocity is 54 on the right and 80 on the left. End -diastolic velocity is 21 on the right and 27 on the left. Systolic velocity ratio is 0.5 on the righ t and 0.9 on the left. Antegrade flow seen in both vertebral arteries. IMPRESSION: 20-30% stenosis of both internal carotid arteries based on velocity criteria similar to the NASCET cr iteria. No hemodynamically significant stenosis. Signer Name: Jesus Cifuentes MD FACR Signed: 01/24/2019 2:31 PM Workstation Name: [id number]
[2019-01-24 18:29] LABS: Amphetamine Screen,Urine PRESUMPTIVE NEGATIVE; Bacteria,Urine 2+ /HPF (Negative); Benzodiazepines Screen,Urine PRESUMPTIVE NEGATIVE; Bilirubin,Urine NEG (Negative); Blood,Urine NEG (Negative); Cannabinoid Screen,Urine PRESUMPTIVE NEGATIVE; Cocaine Screen,Urine PRESUMPTIVE NEGATIVE; Color,Urine Yellow (Yellow); Methadone Screen,Urine PRESUMPTIVE NEGATIVE; Mucus,Urine 2+ /HPF; Opiate Screen,Urine PRESUMPTIVE NEGATIVE; Urobilinogen,Urine < 2.0 mg/dL (<2.0)
[2019-01-24] MEDS ORDERED: D50W (25GM) Syringe IV PRN (20:19)
[2019-01-24] MEDS: HEPARIN SUB-Q SCH (22:21)
[2019-01-24] MEDS: HumaLOG SUB-Q SCH (23:53)
[2019-01-25] MEDS: HumaLOG SUB-Q SCH ×4 (05:23→21:56)
[2019-01-25] MEDS: HEPARIN SUB-Q SCH ×2 (10:00→21:57)
[2019-01-25] MEDS: ASPIRIN PO SCH (11:00)
--- NOTE | 2019-01-25 12:49 | Progress Note ---
Subjective Date of service: 01/25/19 Interval history: Patient seen for acure stroke and had incident of right sided arm and face weakness CT shows multiple old strokes all were lacunar suspect HTN was the cause Objective - Vital Sign Vital Signs - 12hr 01/25/19 01/25/19 01/25/19 04:33 08:01 11:07 Temperature 98.2 F 98.0 F 98.2 F Pulse Rate 82 88 84 Respiratory 18 18 18 Rate Blood Pressure 153/81 159/88 153/80 O2 Sat by Pulse 98 97 97 Oximetry - Laboratory Findings CBC and BMP: 01/24/19 11:19 01/24/19 11:19 Abnormal Lab Findings: Abnormal Labs 01/24/19 01/24/19 01/24/19 11:19 11:19 11:19 WBC 3.8 L RBC 5.19 H MCH 27 L [place] % (Auto) 8.4 H PT 12.1 L APTT 22.4 L BUN 6 L Creatinine 0.5 L Glucose 289 H POC Glucose Urine WBC (Auto) Salicylates Acetaminophen 01/24/19 01/24/19 01/24/19 11:19 11:19 16:02 WBC RBC MCH [place] % (Auto) PT APTT BUN Creatinine Glucose POC Glucose 199 H Urine WBC (Auto) Salicylates < 0.3 L Acetaminophen < 5.0 L 01/24/19 01/24/19 01/25/19 18:00 23:44 05:21 WBC RBC MCH [place] % (Auto) PT APTT BUN Creatinine Glucose POC Glucose 330 H 222 H Urine WBC (Auto) 8.0 H Salicylates Acetaminophen 01/25/19 11:13 WBC RBC MCH [place] % (Auto) PT APTT BUN Creatinine Glucose POC Glucose 303 H Urine WBC (Auto) Salicylates Acetaminophen
--- NOTE | 2019-01-25 12:58 | Progress Note ---
Assessment and Plan Assessment and plan: Patient is 54 yo woman with a history of HTN, CVA, DM, HLD and Asthma who presents to ED for sudden onset of right sided weakness and inability to walk correctly. Pt states that she felt as though she "lost my coordination", and was also unable to hold objects in her right hand. Pt also acknowledges concomitant frontal headache. EMS notified, and upon arrival the patient was found to have a neurologic deficit. A code stroke was called, and the patient transported to [facility]. Pt seen and evaluated in ED and found to have symptoms consistent with CVA. Teleneurology consulted. Pt deemed a candidate for TPA, but patient refused therapy. Pt counseled regarding risks and benefits of therapy. Pt acknowledges understanding risks and benefits but declines therapy. Pt admitted to telemetry and initiated on CVA protocol. Neurology team consulted in ED. (1) CVA (cerebral infarction) Current Visit: No Status: Acute Plan to address problem: Stroke Protocol: Admit to telemetry, CT head, PT/OT/Speech Therapy, Antiplatelet therapy, lipid panel, statin therapy, Neurology consulted in ED, Carotid dopple r, Echo. (2) Diabetes Current Visit: No Status: Acute Qualifiers: Diabetes mellitus type: type 2 Plan to address problem: ADA diet, insulin, accu check, hypoglycemia protocol (3) Hypertension Current Visit: No Status: Acute Qualifiers: Hypertension type: essential hypertension Qualified Code(s): I10 - Essential (primary) hypertension Plan to address problem: Monitor bp q shift, permissive hypertension overnight. (4) HLD (hyperlipidemia) Current Visit: No Status: Chronic Qualifiers: Hyperlipidemia type: mixed hyperlipidemia Qualified Code(s): E78.2 - Mixed hyperlipidemia Plan to address problem: statin therapy, lipid panel (5) DVT prophylaxis Current Visit: Yes Status: Acute Plan to address problem: SCD to BLE while in bed, prophylactic heparin. ordered MRI brain History Interval history: Patient was seen and examined. Follow-up on current diagnosis CVA. No overnight events reported to me. Patient denies any chest pain, shortness breath, nausea/vomiting or severe headaches. Imaging, nursing note, chart, labs and old chart reviewed. Discussed with patient. Hospitalist Physical - Physical exam Narrative exam: Gen: WDWN, NAD, Awake, Alert, Orientated HEENT: NCAT, EOMI, PERRL, OP Clear Neck: supple, no adenopathy, no thyromegaly, no JVD CVS/Heart: RRR, normal S1S2, pulses present bilaterally Chest/Lungs: CTA B, Symmetrical chest expansion, good air entry bilaterally GI/Abdomen: soft, NTND, good bowel sounds, no guarding or rebound /Bladder: no suprapubic tenderness, no CVA or paraspinal tenderness Extermity/Skin: no c/c/e, no obvious rash MSK: FROM x 4 Neuro: CN 2-12 grossly intact, right side weakness, no new focal deficits Psych: calm - Constitutional Vitals: Temp Pulse Resp BP Pulse Ox 98.2 F 84 18 153/80 97 01/25/19 11:07 01/25/19 11:07 01/25/19 11:07 01/25/19 11:07 01/25/19 11:07 Results - Labs CBC & Chem 7: 01/24/19 11:19 01/24/19 11:19 Labs: Laboratory Last Values WBC 3.8 K/mm3 (4.5-11.0) L 01/24/19 11:19 RBC 5.19 M/mm3 (3.65-5.03) H 01/24/19 11:19 Hgb 13.8 gm/dl (10.1-14.3) 01/24/19 11:19 Hct 41.2 % (30.3-42.9) 01/24/19 11:19 MCV 79 fl (79-97) 01/24/19 11:19 MCH 27 pg (28-32) L 01/24/19 11:19 MCHC 34 % (30-34) 01/24/19 11:19 RDW 13.4 % (13.2-15.2) 01/24/19 11:19 Plt Count 160 K/mm3 (140-440) 01/24/19 11:19 Lymph % (Auto) 32.6 % (13.4-35.0) 01/24/19 11:19 [place] % (Auto) 8.4 % (0.0-7.3) H 01/24/19 11:19 Eos % (Auto) 1.8 % (0.0-4.3) 01/24/19 11:19 Baso % (Auto) 0.5 % (0.0-1.8) 01/24/19 11:19 Lymph # 1.2 K/mm3 (1.2-5.4) 01/24/19 11:19 [place] # 0.3 K/mm3 (0.0-0.8) 01/24/19 11:19 Eos # 0.1 K/mm3 (0.0-0.4) 01/24/19 11:19 Baso # 0.0 K/mm3 (0.0-0.1) 01/24/19 11:19 Seg Neutrophils % 56.7 % (40.0-70.0) 01/24/19 11:19 Seg Neutrophils # 2.1 K/mm3 (1.8-7.7) 01/24/19 11:19 PT 12.1 Sec. (12.2-14.9) L 01/24/19 11:19 INR 0.92 (0.87-1.13) 01/24/19 11:19 APTT 22.4 Sec. (24.2-36.6) L 01/24/19 11:19 16.6 Sec. (15.1-19.6) 01/24/19 11:19 Sodium 139 mmol/L (137-145) 01/24/19 11:19 Potassium 3.8 mmol/L (3.6-5.0) 01/24/19 11:19 Chloride 100.5 mmol/L (98-107) 01/24/19 11:19 Carbon Dioxide 26 mmol/L (22-30) 01/24/19 11:19 16 mmol/L 01/24/19 11:19 BUN 6 mg/dL (7-17) L 01/24/19 11:19 0.5 mg/dL (0.7-1.2) L 01/24/19 11:19 Estimated GFR > 60 ml/min 01/24/19 11:19 12 % 01/24/19 11:19 Glucose 289 mg/dL (65-100) H 01/24/19 11:19 POC Glucose 303 (70-105) H 01/25/19 11:13 Calcium 9.0 mg/dL (8.4-10.2) 01/24/19 11:19 Magnesium 1.80 mg/dL (1.7-2.3) 01/24/19 11:19 0.40 mg/dL (0.1-1.2) 01/24/19 11:19 AST 17 units/L (5-40) 01/24/19 11:19 ALT 20 units/L (7-56) 01/24/19 11:19 89 units/L (35-129) 01/24/19 11:19 70 units/L (30-135) 01/24/19 11:19 CK-MB (CK-2) 1.4 ng/mL (0.0-4.0) 01/24/19 11:19 CK-MB (CK-2) Rel Index 2.0 (0-4) 01/24/19 11:19 < 0.010 ng/mL (0.00-0.029) 01/24/19 11:19 7.0 g/dL (6.3-8.2) 01/24/19 11:19 4.4 g/dL (3.9-5) 01/24/19 11:19 1.7 % 01/24/19 11:19 TSH 1.160 mlU/mL (0.270-4.200) 01/24/19 11:19 Yellow (Yellow) 01/24/19 18:00 Cloudy (Clear) 01/24/19 18:00 5.0 (5.0-7.0) 01/24/19 18:00 Ur Specific [place] 1.025 (1.003-1.030) 01/24/19 18:00 30 mg/dl mg/dL (Negative) 01/24/19 18:00 >=500 mg/dL (Negative) 01/24/19 18:00 80 mg/dL (Negative) 01/24/19 18:00 Neg (Negative) 01/24/19 18:00 Neg (Negative) 01/24/19 18:00 Neg (Negative) 01/24/19 18:00 < 2.0 mg/dL (<2.0) 01/24/19 18:00 Ur Leukocyte Esterase Neg (Negative) 01/24/19 18:00 8.0 /HPF (0.0-6.0) H 01/24/19 18:00 44.0 /HPF (0.0-6.0) 01/24/19 18:00 U Epithel Cells (Auto) 4.0 /HPF (0-13.0) 01/24/19 18:00 2+ /HPF (Negative) 01/24/19 18:00 2+ /HPF 01/24/19 18:00 1+ /HPF 01/24/19 18:00 Salicylates < 0.3 mg/dL (2.8-20.0) L 01/24/19 11:19 Presumptive negative 01/24/19 18:00 Presumptive negative 01/24/19 18:00 Acetaminophen < 5.0 ug/mL (10.0-30.0) L 01/24/19 11:19 Ur Barbiturates Screen Presumptive negative 01/24/19 18:00 Ur Phencyclidine Scrn Presumptive negative 01/24/19 18:00 Ur Amphetamines Screen Presumptive negative 01/24/19 18:00 U Benzodiazepines Scrn Presumptive negative 01/24/19 18:00 Presumptive negative 01/24/19 18:00 U Marijuana (THC) Screen Presumptive negative 01/24/19 18:00 Disclamer 01/24/19 18:00 Plasma/Serum Alcohol < 0.01 % (0-0.07) 01/24/19 11:19 Active Medications - Current Medications Current Medications: Generic Name Dose Route Start Last Admin Trade Name Freq PRN Reason Stop Dose Admin Acetaminophen 650 mg 01/24/19 12:35 Tylenol PO Q4H PRN Pain, Mild (1-3) Aspirin 325 mg 01/25/19 10:00 01/25/19 11:00 Aspirin PO 325 mg QDAY BRIANNA Administration Bisacodyl 10 mg 01/24/19 12:35 Dulcolax WI QDAY PRN Constipation Dextrose 50 ml 01/24/19 20:19 D50w (25gm) Syringe IV PRN PRN Hypoglycemia Heparin Sodium (Porcine) 5,000 unit 01/24/19 22:00 01/25/19 10:00 Heparin SUB-Q 5,000 unit Q12HR BRIANNA Administration Insulin Human Lispro 0 unit 01/25/19 00:00 01/25/19 12:40 Humalog SUB-Q 4 unit Q6HR BRIANNA Administration Protocol Magnesium Hydroxide 30 ml 01/24/19 12:35 Milk Of Magnesia PO Q4H PRN Constipation Metoclopramide HCl 10 mg 01/24/19 12:35 Reglan PO Q6H PRN Nausea And Vomiting Ondansetron HCl 4 mg 01/24/19 12:35 Zofran IV Q8H PRN Nausea And Vomiting Promethazine HCl 25 mg 01/24/19 12:35 Phenergan [place] Q6H PRN Nausea And Vomiting Sodium Chloride 10 ml 01/24/19 12:35 Sodium Chloride Flush Syringe 10 Ml IV PRN PRN LINE FLUSH
[2019-01-25] MEDS: TOPROL XL PO SCH (16:26)
[2019-01-25] MEDS: LANTUS SUB-Q SCH (21:57)
[2019-01-25] MEDS: HCTZ PO SCH (21:58)
[2019-01-25] MEDS ORDERED: LISINOPRIL PO SCH (22:00)
[2019-01-25] MEDS ORDERED: HYDROCHLOROTHIAZIDE PO SCH (22:00)
[2019-01-25] MEDS ORDERED: NON-FORMULARY (Simvastatin [Simvastatin] 20 MG) PO SCH (22:00)
[2019-01-25] MEDS ORDERED: INSULIN DETEMIR 25 UNIT SQ SCH (22:00)
[2019-01-25] MEDS ORDERED: ZESTRIL PO SCH (22:00)
[2019-01-25] MEDS ORDERED: PRAVACHOL PO SCH (22:00)
--- NOTE | 2019-01-26 08:12 | Discharge Summary ---
Providers - Providers Date of Admission: 01/24/19 12:35 Attending physician: OMAIRA RENEE MD 01/24/19 Consult to Physician [CONS] Stat Comment: Consulting Provider: MARCUS MCELROY Physician Instructions: Reason For Exam: suspected stroke 01/24/19 12:35 Occupational Therapy Evaluate and Treat [CONS] Routine Comment: Reason For Exam: Neuro deficits Physical Therapy Evaluation and Treat [CONS] Routine Comment: Reason For Exam: Neuro deficits 01/24/19 12:37 Speech Therapy Evaluation and Treat [CONS] Routine Reason For Exam: swallow eval 01/25/19 07:53 Consult to Physician [CONS] Routine Comment: Consulting Provider: ELPIDIO PLEITEZ Physician Instructions: Reason For Exam: cva Primary care physician: PRECISION MACHINE OPERATOR Hospitalization Reason for admission: CVA Condition: Stable Hospital course: Patient is 54 yo woman with a history of HTN, CVA, DM, HLD and Asthma who presents to ED for sudden onset of right sided weakness and inability to walk correctly. Pt states that she felt as though she "lost my coordination", and was also unable to hold objects in her right hand. Pt also acknowledges concomitant frontal headache. EMS notified, and upon arrival the patient was found to have a neurologic deficit. A code stroke was called, and the patient transported to [facility]. Pt seen and evaluated in ED and found to have symptoms consistent with CVA. Teleneurology consulted. Pt deemed a candidate for TPA, but patient refused therapy. Pt counseled regarding risks and benefits of therapy. Pt acknowledges u nderstanding risks and benefits but declines therapy. Pt admitted to telemetry and initiated on CVA protocol. Neurology team consulted in ED. * Patient was sent by neurology CT of the head revealed multiple old stroke, lacunar stroke. * Arvin that this stroke was likely secondary to hypertension next patient was significantly hypertensive on admission. Blood pressure has improved with adjustments in her home regimen was done prior to discharge. * Was evaluated by physical therapy and no further needs was identified and she was ambulated 150 feet. * A blood regime sugar was also adjusted (1) CVA (cerebral infarction) (2) Diabetes mellitus with hypoglycemia (3) Accelerated hypertension (4) HLD (hyperlipidemia) Disposition: - TO HOME OR SELFCARE Time spent for discharge: 35 MINS Exam - Constitutional Vitals: Temp Pulse Resp BP Pulse Ox 98.0 F 66 18 142/85 97 01/26/19 03:46 01/26/19 03:46 01/26/19 03:46 01/26/19 03:46 01/26/19 03:46 Plan Activity: advance as tolerated, fall precautions Diet: low fat, low salt, diabetic Special Instructions: record daily BP diary, record blood sugar diary Care Plan Goals: Better BP control Lisinopril increased to 40mg daily Patient advised to have Renal exam check in 1 week Follow up with: NILDA MCCARTHY MD [Primary Care Provider] - 7 Days ELPIDIO PLEITEZ MD [Staff Physician] - 7 Days Prescriptions: AtorvaSTATin [Lipitor] 40 mg PO QHS #30 tab Lisinopril/Hydrochlorothiazide [Zestoretic 20-25 mg] 20 - 25 mg PO HS #30 tablet Lisinopril [Zestril TAB] 20 mg PO QDAY #30 tablet
[2019-01-26] MEDS ORDERED: HCTZ PO SCH (10:00)
[2019-01-26] MEDS ORDERED: ZESTRIL PO SCH ×2 (10:00)
[2019-01-26 10:03] VITALS: BP 146/86
[2019-01-26] MEDS: ASPIRIN PO SCH (10:03)
[2019-01-26] MEDS: TOPROL XL PO SCH (10:04)
[2019-01-26] MEDS: HumaLOG SUB-Q SCH (10:05)
[2019-01-26] MEDS: HCTZ PO SCH (10:05)
[2019-01-26] MEDS: HEPARIN SUB-Q SCH (10:06)
[2019-01-26] MEDS: LANTUS SUB-Q SCH (10:06)
--- NOTE | 2019-01-26 17:19 | Progress Note ---
Subjective Date of service: 01/26/19 Interval history: multiple strokes and stable for dsicharge as strokes are stable and small lacunar infarcts rec medical therapy Objective - Vital Sign Vital Signs - 12hr 01/26/19 01/26/19 01/26/19 08:09 08:45 10:04 Temperature 97.6 F Pulse Rate 79 79 Respiratory 18 Rate Blood Pressure 146/86 146/86 O2 Sat by Pulse 99 97 Oximetry 01/26/19 10:05 Temperature Pulse Rate 79 Respiratory Rate Blood Pressure 146/86 O2 Sat by Pulse Oximetry - Laboratory Findings CBC and BMP: 01/24/19 11:19 01/24/19 11:19 Abnormal Lab Findings: Abnormal Labs 01/24/19 01/24/19 01/24/19 11:19 11:19 11:19 WBC 3.8 L RBC 5.19 H MCH 27 L [place] % (Auto) 8.4 H PT 12.1 L APTT 22.4 L BUN 6 L Creatinine 0.5 L Glucose 289 H POC Glucose Urine WBC (Auto) Salicylates Acetaminophen 01/24/19 01/24/19 01/24/19 11:19 11:19 16:02 WBC RBC MCH [place] % (Auto) PT APTT BUN Creatinine Glucose POC Glucose 199 H Urine WBC (Auto) Salicylates < 0.3 L Acetaminophen < 5.0 L 01/24/19 01/24/19 01/25/19 18:00 23:44 05:21 WBC RBC MCH [place] % (Auto) PT APTT BUN Creatinine Glucose POC Glucose 330 H 222 H Urine WBC (Auto) 8.0 H Salicylates Acetaminophen 01/25/19 01/25/19 01/25/19 11:13 15:47 21:59 WBC RBC MCH [place] % (Auto) PT APTT BUN Creatinine Glucose POC Glucose 303 H 344 H 283 H Urine WBC (Auto) Salicylates Acetaminophen 01/26/19 08:53 WBC RBC MCH [place] % (Auto) PT APTT BUN Creatinine Glucose POC Glucose 255 H Urine WBC (Auto) Salicylates Acetaminophen
--- NOTE | 2019-01-28 00:39 | Consultation ---
HISTORY OF PRESENT ILLNESS: This 54-year-old black female presents to the Emergency Room on 01/24/2019. The patient presented to the hospital with acute onset of right-sided weakness, speech difficulty and severe dizziness. The patient, on presentation to the hospital, had a prior medical history of hypertension. She has had strokes previously. She denied a headache. She denied loss of consciousness. There were no seizures. REVIEW OF SYSTEMS: Indicate the patient did not have any associated chest pain. She had no headache. She had no bowel or bladder incontinence. She was taking her medication for hypertension. ALLERGIES: SHE HAS ALLERGIES TO CODEINE, IBUPROFEN, METFORMIN. PHYSICAL EXAMINATION: VITAL SIGNS: Her blood pressure is 114/70, pulse rate 80, respirations 18. She has a slight degree of speech slurring. She has a slight drift of the right upper extremity. NEUROLOGIC: Cranial nerves 2-12 are otherwise intact. Parakeet Raiser strength is equal. Motor movements of the legs are full. Cranial nerves are intact. No aphasia at all is present. IMAGING STUDIES: I had the opportunity to check her CT scan. It shows scattered white matter disease bilaterally. A number of strokes have occurred both in the deep white matter and superficial white matter of the right and left cerebral hemispheres, probably accountable for the current episode. I think that the most likely etiology is the internal capsule. Hypertension and atherosclerotic disease are likely the cause. ASSESSMENT AND PLAN: I feel that she does have also additional risk factors of diabetes with her blood sugars in the range of ____-255 and her hematocrit is 41.2. Recommendation is to have a low-dose aspirin, a statin and blood pressure control. I think she can be discharged. I will follow up with her in the office. JOB# [id number] JAVON/NTS
== END 2019-01-26 14:30 | disposition home or self-care (01) | DRG 65 ==
LOC: ED 10:57 → 4A 12:35
PROVIDERS: ADMIT Internal Medicine; ATTEND Internal Medicine
DX: I63.9 Cerebral infarction, unspecified (principal); G81.91 Hemiplegia, unspecified affecting right dominant side; I10 Essential (primary) hypertension; J45.909 Unspecified asthma, uncomplicated; E78.2 Mixed hyperlipidemia; E11.649 Type 2 diabetes mellitus with hypoglycemia without coma; Z79.4 Long term (current) use of insulin; Z88.5 Allergy status to narcotic agent; Z88.8 Allergy status to other drugs, medicaments and biological substances; Z90.710 Acquired absence of both cervix and uterus; Z79.82 Long term (current) use of aspirin
CPT/HCPCS: 36415; 70450; 80053; 80307; 80320; 81001; 82550; 82553; 82962; 83735; 84443; 84484; 85025; 85610; 85670; 85730; 93005; 93010; 93306; 93880; 96374; 96375; G0378; A9270-GY; G0480; J0360; J1200; J1644; J1815; J2765; J7050

== ENCOUNTER 2022-02-16 11:59 | Emergency (ER) | payer SELFPAY ==
--- NOTE | 2022-02-16 15:08 | XRay Report ---
RIGHT FOOT 3 VIEWS INDICATION / CLINICAL INFORMATION: Right foot pain/injury after fall. COMPARISON: None available. FINDINGS: BONES and JOINT(S): No acute fracture or subluxation. No significant arthritis. SOFT TISSUES: There is severe atherosclerosis without other significant abnormalities. ADDITIONAL FINDINGS: None. IMPRESSION: 1. No acute findings. RIGHT ANKLE 3 VIEWS INDICATION / CLINICAL INFORMATION: Right ankle pain/injury after fall. COMPARISON: None available. FINDINGS: BONES and JOINT(S): No acute fracture or subluxation. No significant arthritis. SOFT TISSUES: Mild edema is present laterally with severe atherosclerosis. ADDITIONAL FINDINGS: None. IMPRESSION: 1. Mild right ankle edema without other acute findings. Signer Name: Cecil Anglin MD Signed: 02/16/2022 3:04 PM Workstation Name: [id number]
--- NOTE | 2022-02-16 16:17 | Emergency Department Report ---
ED General Adult HPI - General Chief complaint: Extremity Injury, Lower Stated complaint: ANKLE PAIN Time Seen by Provider: 02/16/22 14:01 Source: patient Mode of arrival: Ambulatory Limitations: No Limitations - History of Present Illness Initial comments: 57-year-old female to the ER with complaints of a right sprained ankle after running around with her grandchild and fell. Patient denies head injury. No other acute signs or symptoms reported. Patient is ambulatory with no assistance. Severity scale (0 -10): 6 - Related Data Home Medications Medication Instructions Recorded Confirmed Last Taken Insulin Detemir (Nf) [Levemir 25 unit SQ BID 05/09/16 01/24/19 01/23/19 Flextouch (Nf)] Metoprolol Xl [Metoprolol 100 mg PO DAILY 01/24/19 01/24/19 01/23/19 SUCCINATE ER TAB] glipiZIDE 10 mg PO DAILY 01/24/19 01/24/19 01/23/19 Previous Rx's Medication Instructions Recorded Last Taken Type Aspirin 325 mg PO QDAY #30 tablet 01/07/15 01/23/19 Rx AtorvaSTATin [Lipitor] 40 mg PO QHS #30 tab 01/26/19 Unknown Rx Lisinopril/Hydrochlorothiazide 20 - 25 mg PO HS #30 tablet 01/26/19 Unknown Rx [Zestoretic 20-25 mg] lisinopriL [Zestril TAB] 20 mg PO QDAY #30 tablet 01/26/19 Unknown Rx Allergies Allergy/AdvReac Type Severity Reaction Status Date / Time codeine Allergy Hives Verified 01/24/19 11:00 ibuprofen [From Motrin] Allergy Rash Verified 01/24/19 11:00 metformin Allergy Hives Verified 01/24/19 11:00 ED Review of Systems ROS: Stated complaint: ANKLE PAIN Other details as noted in HPI Comment: All other systems reviewed and negative Musculoskeletal: joint swelling (right ankle and foot ) ED Past Medical Hx - Past Medical History Previous Medical History?: Yes Hx Hypertension: Yes Hx CVA: Yes (TIA) Hx Diabetes: Yes Hx Asthma: Yes Additional medical history: DDD - Surgical History Past Surgical History?: Yes Additional Surgical History: LEFT ANKLE. BIOPSY. PARTIAL HYSTERECTOMY - Social History Smoking Status: Never Smoker - Medications Home Medications: Home Medications Medication Instructions Recorded Confirmed Last Taken Type Aspirin 325 mg PO QDAY #30 tablet 01/07/15 01/24/19 01/23/19 Rx Insulin Detemir (Nf) [Levemir 25 unit SQ BID 05/09/16 01/24/19 01/23/19 History Flextouch (Nf)] Metoprolol Xl [Metoprolol 100 mg PO DAILY 01/24/19 01/24/19 01/23/19 History SUCCINATE ER TAB] glipiZIDE 10 mg PO DAILY 01/24/19 01/24/19 01/23/19 History AtorvaSTATin [Lipitor] 40 mg PO QHS #30 tab 01/26/19 Unknown Rx Lisinopril/Hydrochlorothiazide 20 - 25 mg PO HS #30 tablet 01/26/19 Unknown Rx [Zestoretic 20-25 mg] lisinopriL [Zestril TAB] 20 mg PO QDAY #30 tablet 01/26/19 Unknown Rx ED Physical Exam - General Limitations: No Limitations General appearance: alert, in no apparent distress - Head Head exam: Present: atraumatic, normocephalic - Eye Eye exam: Present: normal appearance - ENT ENT exam: Present: mucous membranes moist - Neck Neck exam: Present: normal inspection - Respiratory Respiratory exam: Present: normal lung sounds bilaterally. Absent: respiratory distress - Cardiovascular Cardiovascular Exam: Present: regular rate, normal rhythm. Absent: systolic murmur, diastolic murmur, rubs, gallop - GI/Abdominal GI/Abdominal exam: Present: soft, normal bowel sounds - Extremities Exam Extremities exam: Present: normal inspection - Expanded Lower Extremity Exam Right Ankle exam: Present: full ROM, tenderness. Absent: deformity, dislocation, erythema Foot/Toe exam: Present: full ROM, tenderness, swelling. Absent: laceration, deformity, dislocation, erythema - Back Exam Back exam: Present: normal inspection - Neurological Exam Neurological exam: Present: alert, oriented X3 - Psychiatric Psychiatric exam: Present: normal affect, normal mood - Skin Skin exam: Present: warm, dry, intact, normal color. Absent: rash ED Course Vital Signs 02/16/22 02/16/22 14:01 16:39 Temperature 98.3 F 98.4 F Pulse Rate 82 77 Respiratory 20 18 Rate Blood Pressure 138/84 123/74 [Right] O2 Sat by Pulse 100 100 Oximetry ED Medical Decision Making - Radiology Data [facility] [address] [place] [address] XRay Report Signed Patient: OH PEREZ MR#: [id number] 21 : 1965 Acct:[id number] Age/Sex: 57 / F ADM Date: 02/16/22 Loc: ED Attending Dr: Ordering Physician: JAIME BOLANOS MD Date of Service: 02/16/22 Procedure(s): XR foot 2V RT Accession Number(s): [id number] cc: JAIME BOLANOS MD Fluoro Time In Minutes: RIGHT FOOT 3 VIEWS INDICATION / CLINICAL INFORMATION: Right foot pain/injury after fall. COMPARISON: None available. FINDINGS: BONES and JOINT(S): No acute fracture or subluxation. No significant arthritis. SOFT TISSUES: There is severe atherosclerosis without other significant abnormalities. ADDITIONAL FINDINGS: None. IMPRESSION: 1. No acute findings. RIGHT ANKLE 3 VIEWS INDICATION / CLINICAL INFORMATION: Right ankle pain/injury after fall. COMPARISON: None available. FINDINGS: BONES and JOINT(S): No acute fracture or subluxation. No significant arthritis. SOFT TISSUES: Mild edema is present laterally with severe atherosclerosis. ADDITIONAL FINDINGS: None. IMPRESSION: 1. Mild right ankle edema without other acute findings. Signer Name: Cecil Anglin MD Signed: 02/16/2022 3:04 PM Workstation Name: [id number] Transcribed By: MN Dictated By: Cecil Anglin MD Electronically Authenticated By: Cecil Anglin MD Signed Date/Time: 02/16/22 1504 DD/ 1502 TD/TT: [facility] [address] [place] [address] XRay Report Signed Patient: OH PEREZ MR#: [id number] [birth year] : 1965 Acct:[id number] Age/Sex: 57 / F ADM Date: 02/16/22 Loc: ED Attending Dr: Ordering Physician: JAIME BOLANOS MD Date of Service: 02/16/22 Procedure(s): XR ankle 3+V RT Accession Number(s): [id number] cc: JAIME BOLANOS MD Fluoro Time In Minutes: RIGHT FOOT 3 VIEWS INDICATION / CLINICAL INFORMATION: Right foot pain/injury after fall. COMPARISON: None available. FINDINGS: BONES and JOINT(S): No acute fracture or subluxation. No significant arthritis. SOFT TISSUES: There is severe atherosclerosis without other significant abnormalities. ADDITIONAL FINDINGS: None. IMPRESSION: 1. No acute findings. RIGHT ANKLE 3 VIEWS INDICATION / CLINICAL INFORMATION: Right ankle pain/injury after fall. COMPARISON: None available. FINDINGS: BONES and JOINT(S): No acute fracture or subluxation. No significant arthritis. SOFT TISSUES: Mild edema is present laterally with severe atherosclerosis. ADDITIONAL FINDINGS: None. IMPRESSION: 1. Mild right ankle edema without other acute findings. Signer Name: Cecil Anglin MD Signed: 02/16/2022 3:04 PM Workstation Name: [id number] Transcribed By: ANNE-MARIE Dictated By: Cecil Anglin MD Electronically Authenticated By: Cecil Anglin MD Signed Date/Time: 02/16/221503 DD/ 01 TD/TT: - Medical Decision Making 57-year-old female no significant past medical history reports to the ER with complaints of a right sprained ankle after running around with her grandchild and fell. Patient denies head injury. No other acute signs or symptoms reported. Patient is ambulatory with no assistance. On physical exam patient has tenderness to the right ankle and right foot with slight swelling. No deformity or dislocation noted. No open wounds noted. X-ray of ankle and right foot no acute dislocation or fracture present. Patient received Yoseph wrap here in the ER. Patient unable to take narcotics due to her allergies. Patient reports she will take Tylenol for pain. Patient agrees with plan of care and verbalized understanding. No further work-up is needed at this time. Vital Signs 02/16/22 02/16/22 14:01 16:39 Temperature 98.3 F 98.4 F Pulse Rate 82 77 Respiratory 20 18 Rate Blood Pressure 138/84 123/74 [Right] O2 Sat by Pulse 100 100 Oximetry Critical care attestation.: If time is entered above; I have spent that time in minutes in the direct care of this critically ill patient, excluding procedure time. ED Disposition Clinical Impression: Foot pain, right Right ankle injury Qualifiers: Encounter type: initial encounter Qualified Code(s): S99.911A - Unspecified injury of right ankle, initial encounter Disposition: HOME / SELF CARE / HOMELESS Is pt being admited?: No Condition: Stable Instructions: Ankle Sprain, Foot Pain Referrals: CARTER LANGE MD [Primary Care Provider] - 3-5 Days
[2022-02-16 16:41] VITALS: BP 123/74
== END 2022-02-16 16:39 | disposition home or self-care (01) ==
LOC: ED 11:59
DX: S99.911A Unspecified injury of right ankle, initial encounter (principal); M79.671 Pain in right foot; E11.9 Type 2 diabetes mellitus without complications; J45.909 Unspecified asthma, uncomplicated; Z98.890 Other specified postprocedural states; Z88.5 Allergy status to narcotic agent; Z88.6 Allergy status to analgesic agent; Z88.8 Allergy status to other drugs, medicaments and biological substances; Z79.82 Long term (current) use of aspirin; Z79.899 Other long term (current) drug therapy; W18.39XA Other fall on same level, initial encounter; Y93.89 Activity, other specified; Y92.89 Other specified places as the place of occurrence of the external cause; Y99.8 Other external cause status
CPT/HCPCS: 99283